=== PATIENT | male | born 1975 | race Caucasian/White ===

== ENCOUNTER 2017-07-02 13:31 | Emergency (ER) | payer SELFPAY ==
[2017-07-02 14:14] LABS: Basophils % (Auto) 0.5 % (0.0-1.8); Eosinophils % (Auto) 0.9 % (0.0-4.3); Hematocrit 47.3 % (35.5-45.6); Hemoglobin 15.9 gm/dl (11.8-15.2); Mean Corpuscular HGB Conc 34 % (32-34); Mean Corpuscular Hemoglobin 30 pg (28-32); Mean Corpuscular Volume 91 fl (84-94); Platelet Count 208 K/mm3 (140-440); Red Blood Count 5.22 M/mm3 (3.65-5.03); Red Cell Distribution Width 13.4 % (13.2-15.2); White Blood Count 5.8 K/mm3 (4.5-11.0)
[2017-07-02 14:46] LABS: BUN/Creatinine Ratio 18.33; Blood Urea Nitrogen 11 mg/dL (9-20); Calcium 8.1 mg/dL (8.4-10.2); Carbon Dioxide 23 mmol/L (22-30); Glucose 102 mg/dL (75-100)
[2017-07-02 14:47] LABS: Anion Gap 19 mmol/L; Chloride 99.3 mmol/L (98-107); Sodium 137 mmol/L (137-145)
[2017-07-02 19:02] LABS: Bilirubin,Urine NEG (Negative); Blood,Urine NEG (Negative); Ketones,Urine NEG (Negative); Leukocyte Esterase,Urine NEG (Negative); Mucus,Urine FEW /HPF; Nitrite,Urine NEG (Negative); Protein,Urine <15 mg/dL mg/dL (Negative); Urobilinogen,Urine < 2.0 mg/dL (<2.0); WBC,Urine < 1.0 /HPF (0.0-6.0)
--- NOTE | 2017-07-02 20:41 | Emergency Department Report ---
HPI - General Chief Complaint: Chest Pain Time Seen by Provider: 07/02/17 19:53 - HPI HPI: Mr. Pérez is a 41-year-old male who presents to the ED with midsternal chest pain for the past 5 days but worse today. he states the pain radiate to his back and is burning in sensation. The severity of the pain now is 7 out of 10. The severity of the pain of this worse is 10 out of 10. The pain is constant and characterized as burning. The pain is relieved with ranitidine but that relief is brief. The pain does not get worse with breathing. The patient states that he has been drinking 6-12 beers per day and the pain get worse with drinking beers. Patient does not smoke, has a history of a blood pressure but does not have hyperlipidemia. Patient denies any leg swelling, no recent prolonged travel or recent trauma or recent hormone therapy or other hypercoagulable state. ED Past Medical Hx - Past Medical History Previous Medical History?: Yes Hx Hypertension: Yes Hx GERD: Yes - Surgical History Past Surgical History?: Yes Additional Surgical History: L eye surgery retinal detachment - Social History Smoking Status: Never Smoker - Medications Home Medications: Home Medications Medication Instructions Recorded Confirmed Last Taken Type ALPRAZolam [Alprazolam] 0.5 mg PO DAILY 09/30/14 09/30/14 09/30/14 History Lisinopril 10 mg PO DAILY 09/30/14 09/30/14 09/30/14 History Ranitidine HCl [Zantac 75 MG TAB] 75 mg PO DAILY 09/30/14 09/30/14 09/30/14 History Butalb/Acetamin/Caff 50-325-40 1 each PO Q4H PRN #20 tablet 10/01/14 Unknown Rx [Fioricet] Omeprazole 40 mg PO AC #30 capsule. 07/02/17 Unknown Rx ED Review of Systems ROS: Stated complaint: CHEST PAIN/BACK PAIN Other details as noted in HPI Comment: All other systems reviewed and negative Respiratory: no symptoms reported Cardiovascular: as per HPI, chest pain Endocrine: no symptoms reported Gastrointestinal: as per HPI, nausea Genitourinary: as per HPI Physical Exam - Physical Exam Vital Signs: Vital Signs 07/02/17 07/02/17 13:44 18:15 Temperature 98.3 F 97.9 F Pulse Rate 76 67 Respiratory 18 Rate Blood Pressure 141/95 Blood Pressure 139/94 [Left] O2 Sat by Pulse 76 L 100 Oximetry Physical Exam: - Physical Exam: - General Limitations: No Limitations General appearance: alert, in no apparent distress, obese - Head Head exam: Present: atraumatic, normocephalic - Eye Eye exam: Present: normal appearance - ENT ENT exam: Present: mucous membranes moist - Neck Neck exam: Present: normal inspection - Respiratory Respiratory exam: Present: normal lung sounds bilaterally. Absent: respiratory distress - Cardiovascular Cardiovascular Exam: Present: normal rhythm, tachycardia. Absent: systolic murmur, diastolic murmur, rubs, gallop - GI/Abdominal GI/Abdominal exam: Present: soft, normal bowel sounds - Extremities Exam Extremities exam: Present: normal inspection - Back Exam Back exam: Present: normal inspection - Neurological Exam Neurological exam: Present: alert, oriented X3 - Psychiatric Psychiatric exam: normal affect and mood - Skin Skin exam: Present: warm, dry, intact, normal color. Absent: rash ED Course Vital Signs 07/02/17 07/02/17 13:44 18:15 Temperature 98.3 F 97.9 F Pulse Rate 76 67 Respiratory 18 Rate Blood Pressure 141/95 Blood Pressure 139/94 [Left] O2 Sat by Pulse 76 L 100 Oximetry ED Medical Decision Making - Lab Data Result diagrams: 07/02/17 14:01 07/02/17 14:01 Critical care attestation.: If time is entered above; I have spent that time in minutes in the direct care of this critically ill patient, excluding procedure time. ED Disposition Clinical Impression: Gastritis Qualifiers: Gastritis type: alcoholic Chronicity: acute Gastritis bleeding: without bleeding Qualified Code(s): K29.20 - Alcoholic gastritis without bleeding Disposition: DC-01 TO HOME OR SELFCARE Is pt being admited?: No Does the pt Need Aspirin: No Condition: Stable Instructions: Gastritis (ED) Prescriptions: Omeprazole 40 mg PO AC #30 capsule. Referrals: PRIMARY CARE, [Primary Care Provider] - 3-5 Days
[2017-07-02] MEDS ORDERED: PEPCID IV ONE ×2 (20:42→23:19)
[2017-07-02] MEDS ORDERED: PROTONIX PO ONE ×2 (20:42→23:19)
[2017-07-02] MEDS ORDERED: MORPHINE IV ONE (20:43)
[2017-07-02] MEDS ORDERED: ZOFRAN IV ONE (20:43)
[2017-07-02] MEDS ORDERED: NACL 0.9% 1000 ML 1,000 ML IV ONE (20:43)
--- NOTE | 2017-07-02 22:03 | XRay Report ---
FINAL REPORT EXAM: XR CHEST 1V AP HISTORY: Chest pain TECHNIQUE: AP portable chest radiograph. PRIORS: None FINDINGS: The lungs are clear. No focal consolidation, pleural effusion or pneumothorax is identified. The aorta is normal. The cardiomediastinal silhouette is magnified. Rounded retrocardiac density is seen. The osseous structures are intact. IMPRESSION: Rounded retrocardiac density which may represent a hiatal hernia. Correlation with upper GI or CT is recommended.
[2017-07-02] MEDS ORDERED: ZOFRAN ONE (23:18)
[2017-07-03 00:08] VITALS: BP 132/83
== END 2017-07-03 00:06 | disposition home or self-care (01) ==
LOC: ED 13:31
DX: K29.20 Alcoholic gastritis without bleeding (principal); I10 Essential (primary) hypertension; K21.9 Gastro-esophageal reflux disease without esophagitis
CPT/HCPCS: 36415; 71010; 80048; 81001; 83690; 84484; 85025; 93005; 93010; 96361; 96374; 96375; 99284; G0480; J2405; J7030; 80320